=== PATIENT | male | born 1995 | race Caucasian/White ===

== ENCOUNTER 2023-02-20 17:22 | Emergency (ER) | payer MEDICAID ==
[2023-02-20 17:57] VITALS: BP 167/123; O2SAT 99
[2023-02-20 18:11] LABS: RAPID STREP SCREEN Negative (Negative)
--- NOTE | 2023-02-20 18:29 | ED Physician Documentation ---
History of Present Illness - Stated complaint Stated Complaint: FEVER/THROAT SWELLING - Chief complaint Chief Complaint: Heent - History obtained from History obtained from: Patient - History of Present Illness Timing: How many weeks ago (1) Pain level max: 3 Pain level now: 3 - Additonal information Additional information: 27-year-old male with a sore throat x1 week. He has had subjective fevers and chills, but has not measured a fever. Also complaining of bilateral ear "pressure". No significant runny nose, nose congestion, cough. No abdominal pain, vomiting, diarrhea. Worse with swallowing, better with rest. He does vape and smoke marijuana. Review of Systems Nose: denies: Rhinorrhea / runny nose, Congestion Skin: denies: Rash PD PAST MEDICAL HISTORY - Past Medical History Past Medical History: No - Present Medications Home Medications: Ambulatory Orders Medication Instructions Recorded Confirmed Escitalopram [Lexapro] 10 mg PO DAILY 02/20/23 02/20/23 cephALEXin [Keflex] 500 mg PO Q6H #40 cap 02/20/23 predniSONE [Deltasone] 40 mg PO DAILY #10 tablet 02/20/23 - Allergies Allergies/Adverse Reactions: Allergies Allergy/AdvReac Type Severity Reaction Status Date / Time No Known Drug Allergies Allergy Verified 02/20/23 17:40 - Living Situation Living Arrangement: reports: At home - Social History Does the pt smoke?: Yes Does the pt have substance abuse?: Yes Substance Use and Type: Marijuana PD ED PE NORMAL - Vitals Vital signs reviewed: Yes - General General: Alert and oriented X 3, No acute distress - HEENT HEENT: PERRL, Moist mucous membranes, Other (Posterior pharyngeal erythema with mild swelling of the uvula and swelling of the tonsils bilaterally with tonsillar exudates. Uvula is midline. Normal phonation. No trismus. No stridor.) - Neck Neck: Supple, no meningeal sign, Other (Shotty anterior lymphadenopathy) - Cardiac Cardiac: RRR, Strong equal pulses - Respiratory Respiratory: No respiratory distress, Clear bilaterally - Abdomen Abdomen: Soft, Non tender, Non distended - Derm Derm: Warm and dry, No rash - Neuro Neuro: Alert and oriented X 3 - Psych Psych: Normal mood, Normal affect Results - Vitals Vitals: Vital Signs - 24 hr 02/20/23 17:37 Temperature 36.7 C Heart Rate 103 H Respiratory 15 Rate Blood Pressure 167/123 H O2 Saturation 99 Oxygen O2 Source Room air - Labs Labs: Laboratory Tests 02/20/23 17:43 Group A Strep Rapid Negative PD Medical Decision Making - ED course Complexity details: reviewed results, re-evaluated patient, considered differential, d/w patient ED course: Patient with what appears to be tonsillitis/uvulitis. We will place on antibiotics and steroids for home. No evidence of peritonsillar abscess at this time. No evidence of retropharyngeal abscess at this time. Negative rapid strep. Normal phonation. No trismus. Patient counseled regarding signs and symptoms for which I believe and urgent re-evaluation would be necessary. Patient with good understanding of and agreement to plan and is comfortable going home at this time This document was made in part using voice recognition software. While efforts are made to proofread this document, sound alike and grammatical errors may occur. Departure - Departure Disposition: 01 Home, Self Care Clinical Impression: Tonsillitis, Uvulitis Condition: Good Instructions: ED Tonsillitis Follow-Up: your,doctor in 1 week [Other] Prescriptions: predniSONE [Deltasone] 40 mg PO DAILY #10 tablet cephALEXin [Keflex] 500 mg PO Q6H #40 cap Comments: Your prescriptions were sent to [facility] in [place] please take all antibiotics until gone. Please return if you worsen. The steroids will help with the swelling as well. You should be noticing improvement within the next 3 to 4 days. Return sooner if you are worsening. Forms: PCP List Discharge Date/Time: 02/20/23 18:33
== END 2023-02-20 18:33 | disposition home or self-care (01) ==
LOC: ED 17:22
DX: J03.90 Acute tonsillitis, unspecified (principal); K12.2 Cellulitis and abscess of mouth
CPT/HCPCS: 87070; 87430; 99282; 99283

== ENCOUNTER 2023-04-21 20:28 | Emergency (ER) | payer MEDICAID ==
--- NOTE | 2023-04-21 21:15 | XRAY Report ---
PROCEDURE: Knee 4+V RT INDICATIONS: Trauma TECHNIQUE: 6 views of the knee(s) were acquired. COMPARISON: None. FINDINGS: Bones: No fractures or dislocations. No suspicious bony lesions. Soft tissues: No knee joint effusion. No suspicious soft tissue calcifications or masses. IMPRESSION: No acute bony abnormality. If pain persists with conservative management, consider repeat x-ray in 10 -14 days or cross-sectional imaging. Reviewed by: Jose Arias MD on 04/21/2023 9:13 PM PST Approved by: Jose Arias MD on 04/21/2023 9:13 PM PST Station ID: [id number]
--- NOTE | 2023-04-21 21:41 | ED Physician Documentation ---
PD HPI LOWER EXT INJURY - Stated complaint Stated Complaint: RT KNEE PX - Chief complaint Chief Complaint: Trauma Ext - History obtained from History obtained from: Patient - History of Present Illness PD HPI LOW EXT INJURY LOCATION: Right, Knee Type of injury: Twist - Additional information Additional information: 27-year-old male presents with right medial knee pain. He felt a pop was getting into the car yesterday. He had some soreness but was able to go on with his day, went out for New Year's [employer]vette and then went home. He did not ice it or take any medication for it. Today he is mostly been laying around and states that he has had increasing swelling in the right knee and was concern for possible meniscus injury as he had one on the left knee in high school. He states it feels fairly similar. Pain is located along the medial aspect, there is generalized swelling of the knee no erythema. Has not a fever or chills. He is able to bear weight on it and walk though he has decreased flexion due to the swelling. He lives in the [facility] and starting a new job in a few days and wants to know if it is okay to stand for prolonged periods on it. PD PAST MEDICAL HISTORY - Past Medical History Past Medical History: Yes Cardiovascular: None Respiratory: None Neuro: None Endocrine/Autoimmune: None GI: None : None HEENT: None Psych: Anxiety Musculoskeletal: None Derm: None - Past Surgical History Past Surgical History: Yes Ortho: Other - Present Medications Home Medications: Ambulatory Orders Medication Instructions Recorded Confirmed Escitalopram [Lexapro] 10 mg PO DAILY 02/20/23 02/20/23 cephALEXin [Keflex] 500 mg PO Q6H #40 cap 02/20/23 predniSONE [Deltasone] 40 mg PO DAILY #10 tablet 02/20/23 - Allergies Allergies/Adverse Reactions: Allergies Allergy/AdvReac Type Severity Reaction Status Date / Time No Known Drug Allergies Allergy Verified 04/21/23 20:36 - Social History Does the pt smoke?: Yes Smoking Status: Current every day smoker Does the pt drink ETOH?: No Does the pt have substance abuse?: Yes - Immunizations Immunizations are current?: Yes PD ED PE NORMAL - Vitals Vital signs reviewed: Yes - General General: Alert and oriented X 3, No acute distress, Well developed/nourished - HEENT HEENT: Atraumatic, Moist mucous membranes - Derm Derm: Normal color, Warm and dry, No rash - Extremities Extremities: No deformity, Normal ROM s pain (Slightly decreased flexion due to swelling and discomfort but in general good flexion extension, no obvious laxity.), Other (Generalized swelling of the right knee with pain along the right medial joint line, no obvious deformities.). No: No edema, No calf tenderness / cord Results - Vitals Vitals: Vital Signs - 24 hr 04/21/23 20:36 Temperature 36.8 C Heart Rate 100 Respiratory 18 Rate Blood Pressure 150/90 H O2 Saturation 98 Oxygen O2 Source Room air - Rads (name of study) No standard instances Relevant Findings:: Final report received PD Medical Decision Making - ED course Complexity details: reviewed results, considered differential, d/w patient ED course: 19-year-old male presented with right knee pain as described in HPI. On exam he has a generally swollen right knee, no erythema or signs of infection. Pain is along the medial aspect of the right knee and I discussed with patient that differentials include meniscus injury, mild sprain or complete ligamentous tear. We did obtain x-ray which shows no acute findings and therefore I advised patient to do supportive measures for the next couple of weeks and if no improvement and follow-up with PCP for possible outpatient MRI. He can ice the area frequently, take NSAIDs, gently provide compression with Lion wrap and he can do activity as tolerated. I advised that it is okay for him to work even if he has to stand for prolonged periods but try to ice as frequently as possible And elevate whenever possible. Departure - Departure Disposition: 01 Home, Self Care Clinical Impression: Right knee sprain Qualifiers: Encounter type: initial encounter Involved ligament of knee: unspecified ligament Qualified Code(s): S83.91XA - Sprain of unspecified site of right knee, initial encounter Condition: Good Instructions: ED Meniscal Injury Knee Poss, ED Sprain Knee Collateral Ligaments Comments: You likely sustained a right knee sprain though I cannot rule out a more severe tear of the collateral ligaments or meniscal injury. Initial treatment is supportive for all of these things including icing frequently, NSAIDs for inflammation, Tylenol as needed, and activity as tolerated though I recommend avoiding any more strenuous activity or lateral movements which may exacerbate your pain. You can use a Lion wrap for compression which may help. If no improvement in 2 to 3 weeks, please follow-up with your primary doctor and they may consider an MRI outpatient. Forms: PCP List
[2023-04-21 22:01] VITALS: BP 176/100; O2SAT 95
== END 2023-04-21 21:54 | disposition home or self-care (01) ==
LOC: ED 20:28
DX: S83.91XA Sprain of unspecified site of right knee, initial encounter (principal); X50.1XXA Overexertion from prolonged static or awkward postures, initial encounter; Y92.810 Car as the place of occurrence of the external cause; F17.200 Nicotine dependence, unspecified, uncomplicated; Z79.899 Other long term (current) drug therapy
CPT/HCPCS: 99283